=== PATIENT | male | born 1965 | race Caucasian/White ===

== ENCOUNTER 2017-10-06 20:35 | Emergency (ER) | END 2017-10-06 22:11 | disposition home or self-care (01) ==

== ENCOUNTER 2018-06-16 14:34 | Emergency (ER) | payer OTHER ==
[~2018-06-16] VITALS: Ht 177.8 cm; Wt 95.0 kg
[~2018-06-16 14:34] MED LIST: OFLO5DRO46 LEFT EYE
[2018-06-16 14:40] VITALS: Ht 177.8 cm; Wt 95.0 kg
[2018-06-16] MEDS ORDERED: KETOROLAC 30 MG INJ IM STA (17:31)
[2018-06-16] MEDS ORDERED: DIPHTH/TET/ACEL PERTUSS (ADULT) 0.5 ML VIAL IM* ONE (18:00)
[2018-06-16] MEDS ORDERED: traMADol 50 MG TAB PO ONE (18:00)
[2018-06-16] MEDS ORDERED: CEPH500C PO (19:32)
[2018-06-16] MEDS ORDERED: IBUP-1542 PO (19:32)
[2018-06-16 19:50] VITALS: BP 178/82; PULSE 81; RESP 18
[2018-06-16] MEDS ORDERED: LIDOCAINE 1% (MPF) 5 ML VIAL INFIL ONE (20:00)
[2018-06-16] MEDS ORDERED: BACITRACIN 0.9 GM OINT TOP ONE (20:00)
--- NOTE | 2018-06-17 | ERD ---
ER Documentation Chief Complaint Chief Complaint pt is bib self with c/o punture wound to left hand from screwdriver HPI History of Present Illness: 53-year-old male in today with complaint of puncture wound to left hand injury. Patient hours prior to arrival. Tetanus vaccination status unknown. Patient reports that he had screwdriver IN right hand right, and went to smash something and screwdriver punctured into the left hand. Denies any other associated symptoms. At home pharmacological/nonpharmacological treatment for symptoms: Denies Denies social concerns; Denies recent foreign travel ROS All systems reviewed and are negative except as per history of present illness. Medications Home Meds Active Scripts Cephalexin* (Cephalexin*) 500 Mg Capsule, 500 MG PO Q8 for laceration infection preventio for 7 Days, #21 CAP Prov:WHIT CLEARY V POWER MACHINE OPERATOR 06/16/18 Ibuprofen* (Motrin*) 600 Mg Tab, 600 MG PO Q6H PRN for PAIN AND/OR INFLAMMATION, #30 TAB Prov:WHIT CLEARY NP 06/16/18 Ofloxacin* (Ocuflox*) 0.3%-5 Ml Ophth Drops, 1 DROP LEFT EYE QID, #1 BOTTLE Prov:GUTIERREZ KRISHNAN PA-C 10/06/17 Allergies Allergies: Coded Allergies: No Known Allergy (Unverified , 06/16/18) PMhx/Soc Medical and Surgical Hx: pt denies Surgical Hx History of Surgery: No Anesthesia Reaction: No Hx Neurological Disorder: No Hx Respiratory Disorders: No Hx Cardiac Disorders: Yes (HTN) Hx Psychiatric Problems: No Hx Miscellaneous Medical Probl: Yes (DM) Hx Alcohol Use: Yes (occasional) Hx Substance Use: No Hx Tobacco Use: Yes Smoking Status: Current every day smoker Physical Exam Vitals Vital Signs Date Temp Pulse Resp B/P (MAP) Pulse Ox O2 O2 Flow FiO2 Time Delivery Rate 06/16/18 98.1 81 18 178/82 100 Room Air 19:50 (114) 06/16/18 98.3 94 18 137/77 98 14:40 (97) Physical Exam Const: No acute distress Head: Atraumatic Eyes: Normal Conjunctiva ENT: Normal External Ears, Nose and Mouth. Neck: Full range of motion. No meningismus. Resp: Clear to auscultation bilaterally Cardio: Regular rate and rhythm, no murmurs Abd: Soft, non tender, non distended. Normal bowel sounds Skin: No petechiae or rashes, 2.5 linear laceration noted to left hand between thumb and index finger Back: No midline or flank tenderness Ext: No cyanosis, or edema; neurovascularly intact to bilateral extremities Neur: Awake and alert Psych: Normal Mood and Affect Results 24 hrs Current Medications Medications Dose Sig/Amadeo Start Time Status Last (Trade) Ordered Route PRN Stop Time Admin Dose Reason Admin Diphtheria/ 0.5 ml ONCE ONCE 06/16/18 DC 06/16/18 Tetanus/Acell IM* 18:00 06/16/18 17:42 Pertussis 18:01 (Adacel) Ketorolac 30 mg ONCE STAT 06/16/18 DC 06/16/18 Tromethamine IM 17:31 06/16/18 17:42 (Toradol) 17:33 Tramadol 50 mg ONCE ONCE 06/16/18 DC 06/16/18 HCl PO 18:00 06/16/18 17:41 (Ultram) 18:01 Bacitracin 1 applic ONCE ONCE 06/16/18 DC 06/16/18 (Bacitracin TOP 20:00 06/16/18 19:47 Oint (Ud)) 20:00 Lidocaine 5 ml ONCE ONCE 06/16/18 DC (Xylocaine INFIL 20:00 06/16/18 1% (Mpf)) 20:00 Procedures/MDM ED course includes a thorough examination and history. Medications: Tdap, ketorolac, tramadol Imaging: Left hand x-ray Labs: -- Low suspicion for life-threatening medical emergency. Low suspicion for orthopedic emergency that requires hospitalization or immediate surgical intervention. Laceration Repair by me: Anesthesia: 1% lidocaine locally Location: Left hand, between thumb and index finger Tendon/Joint/Nerves: No injury Foreign body: None detected after copious irrigation and exploration Technique: Simple Interrupted Sutures, 3 sutures, 5-0 Ethilon Complexity: No subcutaneous sutures/mucosal repair/edge excision Post Closure Length: 2.5 cm Patient's bleeding was easily controlled in the department and there is no indication of anemia. No evidence of compartment syndrome, neurologic injury, vascular injury, open joint, tendon laceration, or foreign body. Patient is appropriate for outpatient follow up. 48 hour wound check. Scar minimization instructions given. patient presenting with constellation of symptoms likely representing laceration as characterized by history, physical exam findings, radiologic findings. X-ray results showing: IMPRESSION: No displaced fracture or dislocation. RPTAT: HMPE Aristides Damon, Physician No respiratory distress, otherwise relatively well appearing and nontoxic. Patient reassessment: Patient with decreased pain after medication ministration. Laceration repair complete. Wound dressed with sterile dressings. Will disc harge home with antibiotics Keflex due to history of diabetes and likelihood of this being a dirty wound. Patient educated on diagnoses, prescriptions, follow- up care, return precautions. Strict return precautions given for worsening condition; questions answered discharge. Disposition for discharge with followup in 2 days with PCP/clinic for wound recheck, 7 days for suture removal. Departure Diagnosis: Primary Impression: Laceration Condition: Stable Patient Instructions: Laceration, Hand Referrals: [facility] YOU HAVE RECEIVED A MEDICAL SCREENING EXAM AND THE RESULTS INDICATE THAT YOU DO NOT HAVE A CONDITION THAT REQUIRES URGENT TREATMENT IN THE EMERGENCY DEPARTMENT. FURTHER EVALUATION AND TREATMENT OF YOUR CONDITION CAN WAIT UNTIL YOU ARE SEEN IN YOUR DOCTORS OFFICE WITHIN THE NEXT 1-2 DAYS. IT IS YOUR RESPONSIBILITY TO MAKE AN APPOINTMENT FOR FOLOW-UP CARE. IF YOU HAVE A PRIMARY DOCTOR --you should call your primary doctor and schedule an appointment IF YOU DO NOT HAVE A PRIMARY DOCTOR YOU CAN CALL OUR PHYSICIAN REFERRAL HOTLINE AT IF YOU CAN NOT AFFORD TO SEE A PHYSICIAN YOU CAN CHOSE FROM THE FOLLOWING [facility] [address] [facility] [address] [facility] [address] [facility] [address] [facility] [address] [facility]. [facility]. [address] [facility]. [facility] YOU HAVE RECEIVED A MEDICAL SCREENING EXAM AND THE RESULTS INDICATE THAT YOU DO NOT HAVE A CONDITION THAT REQUIRES URGENT TREATMENT IN THE EMERGENCY DEPARTMENT. FURTHER EVALUATION AND TREATMENT OF YOUR CONDITION CAN WAIT UNTIL YOU ARE SEEN IN YOUR DOCTORS OFFICE WITHIN THE NEXT 1-2 DAYS. IT IS YOUR RESPONSIBILITY TO MAKE AN APPOINTMENT FOR FOLOW-UP CARE. IF YOU HAVE A PRIMARY DOCTOR --you should call your primary doctor and schedule and appointment IF YOU DO NOT HAVE A PRIMARY DOCTOR YOU CAN CALL OUR PHYSICIAN REFERRAL HOTLINE AT . IF YOU CAN NOT AFFORD TO SEE A PHYSICIAN YOU CAN CHOSE FROM THE FOLLOWING [facility] INSTITUTIONS: [facility] [address] [place] [address] [facility] [address] [place] [address] [facility] [address] [place] [address] Additional Instructions: Thank you very much for allowing us to participate in your care. Your health and safety is our top priority at [facility]. It is important to read all discharge instructions and education provided in your discharge packet. *You will need a wound check in 2 to 3 days, Tuesday at the latest. You will need suture removal in 7 days, next Tuesday at the latest. Call your primary care doctor TOMORROW for an appointment during the next 2-4 days and bring all the information and medications prescribed. Have prescriptions filled and follow precisely the directions on the label. -Ibuprofen is a medication that will help with pain and inflammation. Ibuprofen at a dosage of 600 to 800 mg will help with inflammation. -Cephalexin is an antibiotic; take this medication every day as listed on your prescription. You must complete the entire course of treatment that is listed on your prescription this is very important because it takes a certain number of days to kill the bacteria that can cause the infection. If the symptoms get worse and your provider is unavailable, return to the Emergency Department immediately. WHIT CLEARY NP June 17, 2018 00:00
== END 2018-06-16 19:52 | disposition home or self-care (01) ==
LOC: FTE 14:34
DX: S61.412A Laceration without foreign body of left hand, initial encounter (principal); E11.9 Type 2 diabetes mellitus without complications; I10 Essential (primary) hypertension; F17.210 Nicotine dependence, cigarettes, uncomplicated; W27.0XXA Contact with workbench tool, initial encounter; Y92.9 Unspecified place or not applicable; Z23 Encounter for immunization
CPT/HCPCS: 12001; 73130; 90471; 90715; 96372; 99284; J1885